=== PATIENT | female | born 1990 | race Caucasian/White ===

== ENCOUNTER 2016-08-29 10:26 | Outpatient (CLI) | payer OTHER ==
--- NOTE | 2016-08-29 15:38 | DIAGNOSTIC IMAGING REPORT ---
PROCEDURE: MR CERVICAL SPINE W/O CONT INDICATION: LT SHOULDER IMPINGEMENT SYNDROME TECHNIQUE: Noncontrast T1, T2, and STIR sagittal images. T2 and gradient axial images. COMPARISON: None. FINDINGS: Normal alignment without fracture. No suspicious osseous lesions. Minor disc bulges at all cervical levels. Paraspinal soft tissues are normal. Craniocervical junction and cervical cord are normal. C1-2: Normal appearance. C2-3: Normal appearance. C3-4: Normal appearance. C4-5: Normal appearance. C5-6: Normal appearance. C6-7: Normal appearance. C7-T1: Normal appearance. IMPRESSION: 1. Minor cervical disc bulges without foraminal or spinal stenosis.
== END 2016-08-29 23:00 | disposition home or self-care (01) ==
LOC: MRI SRH 10:26
DX: M75.42 Impingement syndrome of left shoulder (principal)